=== PATIENT | male | born 1980 | race Hispanic/Latino ===

== ENCOUNTER 2022-02-22 19:35 | Emergency (ER) | payer SELFPAY ==
[~2022-02-22] VITALS: Ht 172.7 cm; Wt 103.0 kg
[2022-02-22 20:00] VITALS: BP 125/85
[2022-02-22] MEDS ORDERED: 0.9%NACL 1000ML 1,000 ML IV SCH ×2 (20:00→21:00)
[2022-02-22] MEDS ORDERED: ONDANSETRON 4MG INJ IVP ONE (20:00)
[2022-02-22 20:11] LABS: APPEARANCE,URINE Clear (CLEAR); BILIRUBIN,URINE Negative (NEGATIVE); COLOR,URINE Dark Yellow (YELLOW); GLUCOSE, URINE (UA) Negative (NEGATIVE); KETONES,URINE Trace mg/dL (NEGATIVE); LEUKOCYTE ESTERASE ,URINE Trace (NEGATIVE); NITRATE,URINE Negative (NEGATIVE); OCCULT BLOOD,URINE Negative (NEGATIVE); PH,URINE 6.5 (5.0-8.0); PROTEIN,URINE Trace mg/dL (NEGATIVE)
[2022-02-22] MEDS ORDERED: ONDANSETRON 4MG INJ ONE (20:12)
[2022-02-22] MEDS ORDERED: 0.9%NACL 1000ML 1,000 ML IV ONE ×2 (20:13→20:56)
[2022-02-22 20:16] LABS: BASOPHILS % (AUTO) 0.8 % (0.0-5.0); EOSINOPHILS % (AUTO) 1.3 % (0.0-8.0); HEMATOCRIT 45.9 % (42-54); LYMPHOCYTES % (AUTO) 20.7 % (21.0-51.0); MEAN CORPUSCULAR HGB CONC 33.6 g/dL (32.0-36.0); MEAN CORPUSCULAR VOLUME 83.5 fL (79-99); MONOCYTES % (AUTO) 11.3 % (3.0-13.0); NEUTROPHILS % (AUTO) 64.8 % (40.0-77.0); PLATELET COUNT (AUTO) 239 K/uL (130-400); RED CELL DISTRIBUTION WIDTH 12.4 % (11.0-15.5); WHITE BLOOD COUNT (AUTO) 7.1 K/uL (4.8-10.8)
[2022-02-22 20:21] LABS: BACTERIA,URINE Few /HPF (None Seen); RBC,URINE 0-1 /HPF (0-1); SQUAMOUS EPITHELIAL CELL,UR Rare /HPF (0-2)
[2022-02-22 20:22] LABS: MUCUS,URINE Few LPF (None Seen)
[2022-02-22 20:42] LABS: TOTAL PROTEIN, SERUM 7.6 g/dL (6.0-8.3)
[2022-02-22] MEDS ORDERED: GUAIFENESIN-CODEINE 5 ML SYRUP ONE (20:55)
[2022-02-22] MEDS ORDERED: GUAIFENESIN-CODEINE 5 ML SYRUP PO ONE (21:00)
[2022-02-22] MEDS ORDERED: D-ME1POW16 PO (21:37)
[2022-02-22] MEDS ORDERED: ONDA4TAB10 PO (21:37)
== END 2022-02-22 21:57 | disposition home or self-care (01) ==
LOC: EDH 19:35
DX: A08.4 Viral intestinal infection, unspecified (principal); J06.9 Acute upper respiratory infection, unspecified; Z20.822 Contact with and (suspected) exposure to COVID-19; E66.9 Obesity, unspecified; Z68.34 Body mass index [BMI] 34.0-34.9, adult
CPT/HCPCS: 36415; 71045; 80053; 81001; 83605; 84484; 85025; 87040 ×2; 87635; 87804 ×2; 87880; 96361; 96374; 99284; C9803; J2405; J7030 ×2

== ENCOUNTER 2022-04-30 18:21 | Emergency (ER) | payer OTHER ==
[~2022-04-30] VITALS: Ht 172.7 cm; Wt 99.8 kg
[~2022-04-30 18:21] MED LIST: D-ME1POW16 PO; ONDA4TAB10 PO
[2022-04-30 19:28] LABS: APPEARANCE,URINE Clear (CLEAR); BILIRUBIN,URINE Negative (NEGATIVE); COLOR,URINE Yellow (YELLOW); GLUCOSE, URINE (UA) Negative (NEGATIVE); KETONES,URINE 15 mg/dL (NEGATIVE); LEUKOCYTE ESTERASE ,URINE Negative (NEGATIVE); NITRATE,URINE Negative (NEGATIVE); OCCULT BLOOD,URINE Negative (NEGATIVE); PROTEIN,URINE Negative (NEGATIVE)
[2022-04-30] MEDS ORDERED: GUAIFENESIN-DM 200/20 MG 10 ML PO ONE (19:30)
[2022-04-30] MEDS ORDERED: ACETAMINOPHEN 500 MG TABLET PO ONE (19:30)
[2022-04-30] MEDS ORDERED: ALBU8.5H8 IH (20:30)
[2022-04-30] MEDS ORDERED: D-ME1POW16 PO (20:30)
[2022-04-30 20:35] VITALS: BP 137/91
== END 2022-04-30 20:41 | disposition home or self-care (01) ==
LOC: EDH 18:21
DX: U07.1 COVID-19 (principal); B34.9 Viral infection, unspecified; F41.9 Anxiety disorder, unspecified; F31.9 Bipolar disorder, unspecified
CPT/HCPCS: 81003; 87635; 87804 ×2; 99283; C9803

== ENCOUNTER 2022-09-12 20:11 | Emergency (ER) | payer OTHER ==
[~2022-09-12] VITALS: Ht 172.7 cm; Wt 102.1 kg
[~2022-09-12 20:11] MED LIST changes: +ALBU8.5H8 IH
[2022-09-12 20:14] VITALS: BP 137/97
== END 2022-09-12 20:42 | disposition home or self-care (01) ==
LOC: EDH 20:11
DX: H81.10 Benign paroxysmal vertigo, unspecified ear (principal); F31.9 Bipolar disorder, unspecified; Z79.899 Other long term (current) drug therapy

== ENCOUNTER 2022-09-28 18:27 | Emergency (ER) | payer OTHER ==
[~2022-09-28] VITALS: Ht 172.7 cm; Wt 102.1 kg
[2022-09-28 19:51] VITALS: BP 149/82
[2022-09-28] MEDS ORDERED: D-ME118S47 PO (20:15)
== END 2022-09-28 20:21 | disposition home or self-care (01) ==
LOC: EDH 18:27
DX: J06.9 Acute upper respiratory infection, unspecified (principal); R05.9 Cough, unspecified; Z20.822 Contact with and (suspected) exposure to COVID-19; F41.9 Anxiety disorder, unspecified; F32.A Depression, unspecified; Z79.899 Other long term (current) drug therapy
CPT/HCPCS: 99283; 87635; 87880; 87804 ×2; C9803

== ENCOUNTER 2022-10-14 22:51 | Emergency (ER) | payer OTHER ==
[~2022-10-14] VITALS: Ht 172.7 cm; Wt 103.0 kg
[~2022-10-14 22:51] MED LIST changes: +D-ME118S47 PO
[2022-10-14 23:08] VITALS: BP 136/89
[2022-10-14] MEDS ORDERED: MECL-160 PO (23:18)
== END 2022-10-14 23:28 | disposition home or self-care (01) ==
LOC: EDH 22:51
DX: H81.10 Benign paroxysmal vertigo, unspecified ear (principal); F31.9 Bipolar disorder, unspecified; F41.9 Anxiety disorder, unspecified; F43.10 Post-traumatic stress disorder, unspecified
CPT/HCPCS: 99282

== ENCOUNTER 2023-05-30 09:38 | Emergency (ER) | payer OTHER ==
[~2023-05-30] VITALS: Ht 172.7 cm; Wt 106.6 kg
[~2023-05-30 09:38] MED LIST changes: +MECL-160 PO
[2023-05-30] MEDS ORDERED: CEFTRIAXONE 1G VIAL IM ONE (11:30)
[2023-05-30] MEDS ORDERED: DEXAMETHASONE SOD PHOSPHATE 4 MG/ML 1ML VIAL IM ONE (11:30)
[2023-05-30] MEDS ORDERED: GUAIFENESIN-CODEINE 5 ML SYRUP PO ONE (11:30)
[2023-05-30] MEDS ORDERED: AMOX500C2 PO (11:46)
[2023-05-30 12:13] VITALS: BP 140/78
== END 2023-05-30 12:21 | disposition home or self-care (01) ==
LOC: EDH 09:38
DX: J02.0 Streptococcal pharyngitis (principal); R05.9 Cough, unspecified; J45.909 Unspecified asthma, uncomplicated; F41.9 Anxiety disorder, unspecified; F32.A Depression, unspecified; Z20.822 Contact with and (suspected) exposure to COVID-19; Z79.899 Other long term (current) drug therapy; Z98.890 Other specified postprocedural states
CPT/HCPCS: 99284; 71045; 87635; 87880; 87804 ×2; 96372 ×2; J1100; C9803; J0696

== ENCOUNTER 2023-06-13 18:03 | Emergency (ER) | payer OTHER ==
[~2023-06-13] VITALS: Ht 172.7 cm; Wt 104.8 kg
[~2023-06-13 18:03] MED LIST changes: +AMOX500C2 PO
[2023-06-13] MEDS ORDERED: IPRATROPIUM/ALBUTEROL SULFATE 3 ML SOLUTION IH ONE ×2 (21:11→21:30)
[2023-06-13] MEDS ORDERED: GUAIF10 PO (21:22)
[2023-06-13] MEDS ORDERED: METH4TAB3 PO (21:22)
[2023-06-13] MEDS ORDERED: GUAIFENESIN-CODEINE 5 ML SYRUP PO ONE (21:30)
[2023-06-13 22:28] VITALS: BP 128/71
== END 2023-06-13 22:32 | disposition home or self-care (01) ==
LOC: MERGE 18:03 → EDH 18:03
DX: J45.909 Unspecified asthma, uncomplicated (principal)
CPT/HCPCS: 71045; 94640

== ENCOUNTER 2023-09-04 14:09 | Emergency (ER) | payer OTHER ==
[~2023-09-04] VITALS: Ht 170.2 cm; Wt 100.7 kg
[~2023-09-04 14:09] MED LIST changes: +BROM118S48 PO; -D-ME118S47 PO; +GUAIF10 PO; -MECL-160 PO; +MECL-302 PO; +METH4TAB3 PO
[2023-09-04 14:27] LABS: BASOPHILS # (AUTO) 0.07 K/uL (0.00-0.20); EOSINOPHILS # (AUTO) 0.09 K/uL (0.00-0.70); EOSINOPHILS % (AUTO) 1.3 % (0.0-8.0); LYMPHOCYTES # (AUTO) 2.4 K/uL (1.0-4.8); MEAN CORPUSCULAR HEMOGLOBIN 26.1 pg (27.0-33.0); MEAN CORPUSCULAR HGB CONC 33.2 g/dL (32.0-36.0); MEAN CORPUSCULAR VOLUME 78.7 fL (79-99); MONOCYTES # (AUTO) 0.8 K/uL (0.1-1.0); MONOCYTES % (AUTO) 10.6 % (3.0-13.0); NEUTROPHILS # (AUTO) 3.8 K/uL (1.8-7.7); NEUTROPHILS % (AUTO) 52.7 % (40.0-77.0); PLATELET COUNT (AUTO) 234 K/uL (130-400); RED BLOOD CELL COUNT(AUTO) 5.59 MIL/uL (4.50-6.20); RED CELL DISTRIBUTION WIDTH 13.7 % (11.0-15.5); WHITE BLOOD COUNT (AUTO) 7.2 K/uL (4.8-10.8)
[2023-09-04 14:40] LABS: CREATININE 1.1 mg/dL (0.5-1.5); POTASSIUM 4.3 mmol/L (3.5-5.1)
[2023-09-04 14:42] LABS: APPEARANCE,URINE CLEAR (CLEAR); BILIRUBIN,URINE NEGATIVE (NEGATIVE); GLUCOSE, URINE (UA) NEGATIVE (NEGATIVE); KETONES,URINE NEGATIVE (NEGATIVE); LEUKOCYTE ESTERASE ,URINE NEGATIVE Leu/uL (NEGATIVE); NITRATE,URINE NEGATIVE (NEGATIVE); OCCULT BLOOD,URINE NEGATIVE (NEGATIVE); PH,URINE 6.5 (5.0-8.0); PROTEIN,URINE NEGATIVE (NEGATIVE); UROBILINOGEN,URINE 0.2 mg/dL (0.2-1.0)
[2023-09-04 14:44] LABS: ADD UA MICROSCOPIC NO; COLOR,URINE YELLOW (YELLOW)
[2023-09-04 14:48] LABS: AMPHET/METH SCREEN,URINE NEGATIVE (NEGATIVE); BARBITURATE SCREEN, URINE NEGATIVE (NEGATIVE); BENZODIAZEPINES SCREEN,URINE NEGATIVE (NEGATIVE); CANNABINOID SCREEN,URINE NEGATIVE (NEGATIVE); COCAINE SCREEN,URINE NEGATIVE (NEGATIVE); OPIATE SCREEN,URINE NEGATIVE (NEGATIVE); PHENCYCLIDINE SCREEN,URINE NEGATIVE (NEGATIVE)
[2023-09-04 14:50] LABS: BILIRUBIN,TOTAL 0.6 mg/dL (0.2-1.0); TOTAL PROTEIN, SERUM 7.4 g/dL (6.0-8.3)
[2023-09-04] MEDS ORDERED: IBUPROFEN 600 MG TABLET PO ONE (16:00)
[2023-09-04 16:50] VITALS: BP 136/93; PULSE 78; RESP 18; O2SAT 99
== END 2023-09-04 16:57 | disposition home or self-care (01) ==
LOC: EDH 14:09
DX: M94.0 Chondrocostal junction syndrome [Tietze] (principal); R07.89 Other chest pain; F41.9 Anxiety disorder, unspecified; F32.A Depression, unspecified; J45.909 Unspecified asthma, uncomplicated; Z79.899 Other long term (current) drug therapy
CPT/HCPCS: 36415; 71045; 80053; 80305; 81003; 82550; 83874; 84484; 85025; 93005